=== PATIENT | female | born 1975 | race Hispanic/Latino ===

== ENCOUNTER 2024-11-24 11:09 | Inpatient (IN) | payer MEDICARE ==
[~2024-11-24] VITALS: Ht 165.1 cm; Wt 63.5 kg
[2024-11-24 12:26] LABS: BASOPHILS % 0.4 % (0.0-1.0); EOSINOPHILS # (AUTO) 0.1 (0.0-0.4); EOSINOPHILS % 0.5 % (0.0-6.0); HEMATOCRIT 34.4 % (34.2-44.1); HEMOGLOBIN 10.6 g/dL (12.0-16.0); LYMPHOCYTES # (AUTO) 1.1 (1.0-3.2); LYMPHOCYTES % 10.2 % (18.0-39.1); MEAN CORPUSCULAR HGB CONC 30.8 g/dL (31-35); MONOCYTES # (AUTO) 0.8 (0.2-0.8); MONOCYTES % 7.6 % (4.4-11.3); NEUTROPHILS # (AUTO) 8.9 (2.1-6.9); NEUTROPHILS % 80.8 % (38.7-80.0); PLATELET COUNT 145 x10e3/uL (140-360); RED BLOOD COUNT 3.66 x10e6/uL (3.6-5.1); RED CELL DISTRIBUTION WIDTH 12.4 % (11.7-14.4); WHITE BLOOD COUNT 11.03 x10e3/uL (4.8-10.8)
[2024-11-24 12:47] LABS: ALBUMIN 3.4 g/dL (3.5-5.0); ALBUMIN/GLOBULIN RATIO 0.7 (0.8-2.0); ANION GAP 15.4 mmol/L (8-16); BILIRUBIN,TOTAL 0.5 mg/dL (0.2-1.2); CALCIUM 10.3 mg/dL (8.4-10.2); CREATININE, SERUM 1.54 mg/dL (0.57-1.11); TOTAL PROTEIN 8.5 g/dL (6.5-8.1)
[2024-11-24 12:51] LABS: POTASSIUM 3.4 mmol/L (3.5-5.1)
[2024-11-24] MEDS: SODIUM CHLORIDE 0.9% 1000ML 1,000 ML IV SCH ×2 (12:54→14:42)
[2024-11-24] MEDS: DICYCLOMINE HCL 20 MG/2 ML VIAL IM ONE (12:54)
[2024-11-24] MEDS ORDERED: IOPAMIDOL 370 MG/ML 100 ML INFUS..BTL INJ ONE (12:58)
[2024-11-24 14:24] LABS: BILIRUBIN,URINE NEGATIVE (NEGATIVE); CLARITY,URINE HAZY (CLEAR); COLOR,URINE YELLOW (YELLOW); GLUCOSE, URINE NEGATIVE (NEGATIVE); KETONES,URINE NEGATIVE (NEGATIVE); LEUKOCYTE ESTERASE ,URINE SMALL (NEGATIVE); NITRITE,URINE NEGATIVE (NEGATIVE); PH,URINE 6.5 (5 - 7); PROTEIN,URINE DIPSTICK 1+ (NEGATIVE); URINE UROBILINOGEN 0.2 mg/dL (0.2 - 1)
[2024-11-24 14:28] LABS: BACTERIA,URINE MANY /HPF; EPITHELIAL CELLS,URINE FEW /LPF; WBC,URINE (MAN) >50 /HPF (0-5)
[2024-11-24 14:32] VITALS: PULSE 78; RESP 18; TEMP 98.7
[2024-11-24] MEDS ORDERED: LIDOCAINE HCL 1% 30ML-PF VIAL ONE (15:06)
[2024-11-24 15:08] LABS: INR 1.1; PROTHROMBIN TIME 14.9 seconds (11.9-14.5)
[2024-11-24 15:20] VITALS: PULSE 74; RESP 20; O2SAT 96
[2024-11-24] MEDS ORDERED: FENTANYL CITRATE/PF 100MCG/2 ML INJ ONE (15:20)
[2024-11-24 16:53] LABS: BODY FLUID APPEARANCE CLOUDY; BODY FLUID COLOR RED; BODY FLUID TYPE RT CYST OF KIDNEY
[2024-11-24 17:00] VITALS: BP 119/81; PULSE 81; RESP 18; TEMP 99; O2SAT 100
[2024-11-24 18:02] VITALS: BP 131/87; PULSE 74; RESP 20; O2SAT 96
[2024-11-24 18:22] VITALS: BP 114/81; PULSE 81; RESP 18; TEMP 99; O2SAT 100
[2024-11-24 20:00] VITALS: BP 111/86; PULSE 92; RESP 20; TEMP 99.7; O2SAT 99
[2024-11-24] MEDS ORDERED: BISACODYL 10 MG SUPP PR PRN (20:15)
[2024-11-24] MEDS ORDERED: POLYETHYLENE GLYCOL 3350 17 GM PACK PO PRN (20:15)
[2024-11-24] MEDS ORDERED: ACETAMINOPHEN 325 MG TAB PO PRN (20:15)
[2024-11-24] MEDS: Morphine 4mg INJECTION 4 MG/ML INJ IV PRN (20:38)
[2024-11-25] VITALS (7 sets, daily range): BP systolic 108–152; BP diastolic 48–85; PULSE 66–85; RESP 17–18; TEMP 98–99.1; O2SAT 94–100
[2024-11-25 06:45] LABS: BASOPHILS % 0.2 % (0.0-1.0); EOSINOPHILS # (AUTO) 0.1 (0.0-0.4); EOSINOPHILS % 0.6 % (0.0-6.0); HEMATOCRIT 27.7 % (34.2-44.1); LYMPHOCYTES # (AUTO) 1.4 (1.0-3.2); LYMPHOCYTES % 16.9 % (18.0-39.1); MEAN CORPUSCULAR HEMOGLOBIN 28.6 pg (28-32); MEAN CORPUSCULAR HGB CONC 30.3 g/dL (31-35); MEAN CORPUSCULAR VOLUME 94.2 fL (81-99); MONOCYTES % 12.7 % (4.4-11.3); NEUTROPHILS # (AUTO) 5.5 (2.1-6.9); NEUTROPHILS % 69.2 % (38.7-80.0); PLATELET COUNT 131 x10e3/uL (140-360); RED BLOOD COUNT 2.94 x10e6/uL (3.6-5.1); RED CELL DISTRIBUTION WIDTH 12.3 % (11.7-14.4); WHITE BLOOD COUNT 8.01 x10e3/uL (4.8-10.8)
[2024-11-25 06:46] LABS: HEMOGLOBIN 8.4 g/dL (12.0-16.0)
[2024-11-25 07:11] LABS: ANION GAP 12.7 mmol/L (8-16); CALCIUM 9.1 mg/dL (8.4-10.2); CREATININE, SERUM 1.17 mg/dL (0.57-1.11); POTASSIUM 3.7 mmol/L (3.5-5.1)
[2024-11-25 07:12] LABS: MAGNESIUM 1.9 MG/DL (1.3-2.1)
[2024-11-25 07:33] LABS: FERRITIN 611.98 ng/mL (4.63-204.00); THYROID STIMULATING HORMONE 4.076 uIU/mL (0.350-4.940)
[2024-11-25] MEDS: DOCUSATE SODIUM 100 MG CAP PO SCH (08:33)
[2024-11-25] MEDS: SENNOSIDES 8.6 MG TAB PO SCH (08:33)
[2024-11-25] MEDS: HYDROCODONE/APAP 5MG-325MG TAB PO PRN (11:29)
[2024-11-26] VITALS (7 sets, daily range): BP systolic 105–126; BP diastolic 71–90; PULSE 59–76; RESP 17–18; TEMP 97.4–98; O2SAT 100
[2024-11-26 08:32] LABS: BASOPHILS % 0.3 % (0.0-1.0); EOSINOPHILS # (AUTO) 0.1 (0.0-0.4); EOSINOPHILS % 1.8 % (0.0-6.0); HEMATOCRIT 27.1 % (34.2-44.1); LYMPHOCYTES # (AUTO) 1.1 (1.0-3.2); MEAN CORPUSCULAR HEMOGLOBIN 27.8 pg (28-32); MEAN CORPUSCULAR HGB CONC 29.5 g/dL (31-35); MEAN CORPUSCULAR VOLUME 94.1 fL (81-99); MONOCYTES # (AUTO) 0.4 (0.2-0.8); MONOCYTES % 10.1 % (4.4-11.3); NEUTROPHILS # (AUTO) 2.3 (2.1-6.9); NEUTROPHILS % 59.5 % (38.7-80.0); PLATELET COUNT 114 x10e3/uL (140-360); RED BLOOD COUNT 2.88 x10e6/uL (3.6-5.1); RED CELL DISTRIBUTION WIDTH 12.4 % (11.7-14.4); WHITE BLOOD COUNT 3.86 x10e3/uL (4.8-10.8)
[2024-11-26 09:04] LABS: ALBUMIN 2.6 g/dL (3.5-5.0); ALBUMIN/GLOBULIN RATIO 0.7 (0.8-2.0); ANION GAP 11.7 mmol/L (8-16); BILIRUBIN,TOTAL 0.3 mg/dL (0.2-1.2); CALCIUM 8.9 mg/dL (8.4-10.2); CREATININE, SERUM 0.8 mg/dL (0.57-1.11); POTASSIUM 3.7 mmol/L (3.5-5.1); TOTAL PROTEIN 6.3 g/dL (6.5-8.1)
[2024-11-26] MEDS: ONDANSETRON HCL INJ 2MG/ML 2ML 2 MG/ML VIAL IV PRN (18:17)
[2024-11-27] VITALS (9 sets, daily range): BP systolic 103–136; BP diastolic 69–91; PULSE 60–70; RESP 16–18; TEMP 97.5–98.2; O2SAT 100
[2024-11-27 07:25] LABS: BASOPHILS % 0.5 % (0.0-1.0); EOSINOPHILS # (AUTO) 0.2 (0.0-0.4); EOSINOPHILS % 3.9 % (0.0-6.0); HEMATOCRIT 25.5 % (34.2-44.1); HEMOGLOBIN 8.1 g/dL (12.0-16.0); LYMPHOCYTES # (AUTO) 1.2 (1.0-3.2); LYMPHOCYTES % 28.6 % (18.0-39.1); MEAN CORPUSCULAR HGB CONC 31.8 g/dL (31-35); MEAN CORPUSCULAR VOLUME 88.2 fL (81-99); MONOCYTES # (AUTO) 0.4 (0.2-0.8); MONOCYTES % 9.1 % (4.4-11.3); NEUTROPHILS # (AUTO) 2.3 (2.1-6.9); NEUTROPHILS % 57.7 % (38.7-80.0); PLATELET COUNT 146 x10e3/uL (140-360); RED BLOOD COUNT 2.89 x10e6/uL (3.6-5.1); RED CELL DISTRIBUTION WIDTH 12.5 % (11.7-14.4); WHITE BLOOD COUNT 4.06 x10e3/uL (4.8-10.8)
[2024-11-27 07:36] LABS: ANION GAP 12.6 mmol/L (8-16); CALCIUM 9.2 mg/dL (8.4-10.2); CREATININE, SERUM 0.98 mg/dL (0.57-1.11); POTASSIUM 3.6 mmol/L (3.5-5.1)
[2024-11-27] MEDS: CYANOCOBALAMIN 1,000 MCG TAB PO SCH (09:39)
[2024-11-28 00:07] VITALS: BP 90/54; PULSE 52; RESP 16; TEMP 97.7; O2SAT 100
[2024-11-28 04:06] VITALS: BP 98/66; PULSE 62; RESP 17; TEMP 98; O2SAT 100
[2024-11-28 06:40] LABS: BASOPHILS % 0.7 % (0.0-1.0); EOSINOPHILS # (AUTO) 0.2 (0.0-0.4); EOSINOPHILS % 3.6 % (0.0-6.0); HEMATOCRIT 27.4 % (34.2-44.1); HEMOGLOBIN 8.3 g/dL (12.0-16.0); LYMPHOCYTES # (AUTO) 1.3 (1.0-3.2); LYMPHOCYTES % 31.2 % (18.0-39.1); MEAN CORPUSCULAR HEMOGLOBIN 28.2 pg (28-32); MEAN CORPUSCULAR HGB CONC 30.3 g/dL (31-35); MEAN CORPUSCULAR VOLUME 93.2 fL (81-99); MONOCYTES # (AUTO) 0.4 (0.2-0.8); MONOCYTES % 9.6 % (4.4-11.3); NEUTROPHILS # (AUTO) 2.3 (2.1-6.9); NEUTROPHILS % 54.4 % (38.7-80.0); PLATELET COUNT 157 x10e3/uL (140-360); RED BLOOD COUNT 2.94 x10e6/uL (3.6-5.1); WHITE BLOOD COUNT 4.17 x10e3/uL (4.8-10.8)
[2024-11-28 07:14] LABS: ALBUMIN 2.8 g/dL (3.5-5.0); ALBUMIN/GLOBULIN RATIO 0.7 (0.8-2.0); ANION GAP 12.8 mmol/L (8-16); BILIRUBIN,TOTAL 0.2 mg/dL (0.2-1.2); CALCIUM 9.5 mg/dL (8.4-10.2); CREATININE, SERUM 1.05 mg/dL (0.57-1.11); MAGNESIUM 1.8 MG/DL (1.3-2.1); POTASSIUM 3.8 mmol/L (3.5-5.1); TOTAL PROTEIN 6.8 g/dL (6.5-8.1)
[2024-11-28 08:00] VITALS: BP 113/73; PULSE 66; RESP 18; TEMP 97.9; O2SAT 100
[2024-11-28] MEDS ORDERED: CIPROFLOXACIN 500 MG TAB PO SCH (09:15)
[2024-11-28] MEDS ORDERED: B-121000 MC1 PO (11:11)
[2024-11-28] MEDS ORDERED: KETOROLAC TROME10 MG PO (11:11)
[2024-11-28] MEDS ORDERED: CIPRO500 MG PO (11:11)
[2024-11-28 12:00] VITALS: BP 93/65; PULSE 61; RESP 18; TEMP 97.9; O2SAT 100
== END 2024-11-28 13:14 | disposition home or self-care (01) | DRG 690 ==
LOC: ER 11:23 → ERHOLD 14:22 → MED/SURG3 16:19
PROVIDERS: ADMIT Internal Medicine; ATTEND Internal Medicine
PROC: 0T9030Z Drainage of Right Kidney with Drainage Device, Percutaneous Approach (ICD-10-PCS; principal; 2024-11-24)
DX: N15.1 Renal and perinephric abscess (principal); Q61.02 Congenital multiple renal cysts; N12 Tubulo-interstitial nephritis, not specified as acute or chronic; B96.20 Unspecified Escherichia coli [E. coli] as the cause of diseases classified elsewhere; N17.9 Acute kidney failure, unspecified; E86.0 Dehydration; D63.8 Anemia in other chronic diseases classified elsewhere; D69.6 Thrombocytopenia, unspecified; R00.0 Tachycardia, unspecified; R31.29 Other microscopic hematuria; K83.8 Other specified diseases of biliary tract; R62.50 Unspecified lack of expected normal physiological development in childhood; Z79.899 Other long term (current) drug therapy
CPT/HCPCS: 36415; 74177; 74470; 76705; 77012; 80048; 80053; 81001; 82565; 82607; 82728; 83036; 83540; 83605; 83690; 83735; 84443; 84466; 85025; 85610; 87040; 87070; 87071; 87075; 87086; 87186; 87205; 88112; 88305; 89051; 94799; 99252; 99284; J2003; J2270; J2405; J2470; J2543; J7030; Q9967